=== PATIENT | female | born 1975 | race Caucasian/White ===

== ENCOUNTER 2017-01-26 17:24 | Emergency (ER) | payer MEDICAID ==
[2017-01-26 18:24] LABS: BASOPHILS 0.1 % (0.0-2.0); EOSINOPHILS 0 % (0-7); HEMATOCRIT 39.8 % (36.0-48.0); HEMOGLOBIN 13.6 g/dL (12-16); IMMATURE GRANULOCYTES 0.2 % (0-5); LYMPHOCYTES 16.8 % (15-50); MCH 33.4 pg (26.0-34.0); MCHC 34.2 g/dL (31.0-37.0); MCV 97.8 fL (80.0-100.0); MEAN PLATELET VOLUME 9.7 fL (7.4-10.4); MONOCYTES 3.9 % (2-11); PLATELET COUNT 253 10x3/uL (130-400); RBC 4.07 10x6/uL (4.00-5.40); RDW 12.2 % (11.5-14.5); WBC 8.2 10x3/uL (4.8-10.8)
[2017-01-26 18:42] LABS: ALBUMIN 4.6 g/dL (3.4-5.0); ALKALINE PHOSPHATASE 64 U/L (46-116); ALT (SGPT) 30 U/L (10-68); CALC OSMOLALITY 284 mosm/kg (275-300); CALCIUM 9.8 mg/dL (8.5-10.1); CARBON DIOXIDE 21.8 mmol/L (21.0-32.0); CHLORIDE - SERUM 102 mmol/L (98-107); CREATININE - SERUM 0.8 mg/dL (0.6-1.3); GLUCOSE 146 mg/dL (74-106); POTASSIUM - SERUM 3.8 mmol/L (3.5-5.1); PROTEIN - SERUM 7.7 g/dL (6.4-8.2); SODIUM 141 mmol/L (136-145); UREA NITROGEN 16 mg/dL (7-18); eGFR NON AFRICAN AMERICAN 85 mL/min (90-120)
== END 2017-01-26 20:25 | disposition home or self-care (01) ==
LOC: D.ER 17:24
PROVIDERS: Emergency Medicine
DX: B34.9 Viral infection, unspecified (principal); R00.1 Bradycardia, unspecified

== ENCOUNTER 2019-04-14 17:09 | Emergency (ER) | payer MEDICAID ==
[~2019-04-14] VITALS: Ht 154.9 cm; Wt 52.3 kg
[2019-04-14 17:15] VITALS: Ht 154.9 cm; Wt 52.3 kg
[2019-04-14] MEDS ORDERED: CELEXA40 MG PO (17:17)
[2019-04-14] MEDS ORDERED: MAG-OXIDE400 MG PO (17:18)
[2019-04-14] MEDS ORDERED: CLEOCIN HCL300 MG PO (18:45)
[2019-04-14 18:59] VITALS: BP 148/101
== END 2019-04-14 19:00 | disposition home or self-care (01) ==
LOC: D.ER 17:09
DX: S71.122A Laceration with foreign body, left thigh, initial encounter (principal); Y93.H2 Activity, gardening and landscaping; Y92.017 Garden or yard in single-family (private) house as the place of occurrence of the external cause

== ENCOUNTER 2020-07-13 17:00 | Emergency (ER) | payer MEDICAID ==
[~2020-07-13] VITALS: Ht 154.9 cm; Wt 50.0 kg
[~2020-07-13 17:00] MED LIST: CELEXA40 MG PO; CLEOCIN HCL300 MG PO; MAG-OXIDE400 MG PO
[2020-07-13 17:14] VITALS: Ht 154.9 cm; Wt 50.0 kg
[2020-07-13 17:43] LABS: BASOPHILS 0.2 % (0-2); EOSINOPHILS 0.1 % (0-7); HEMOGLOBIN 14.1 g/dL (12-16); IMMATURE GRANULOCYTES 0.1 % (0-5); MCH 34.1 pg (26.0-34.0); MCHC 34.4 g/dL (31.0-37.0); MEAN PLATELET VOLUME 9.5 fL (7.4-10.4); MONOCYTES 5.8 % (2-11); NEUTROPHILS 87.8 % (40-80); RBC 4.14 10x6/uL (4.00-5.40); RDW 12.1 % (11.5-14.5); WBC 11.4 10x3/uL (4.8-10.8)
[2020-07-13 17:44] LABS: PLATELET COUNT 311 10x3/uL (130-400)
[2020-07-13 17:50] LABS: ANION GAP 18.7 mmol/L (8-16); CALCIUM 10.3 mg/dL (8.5-10.1); CARBON DIOXIDE 22.2 mmol/L (21.0-32.0); CREATININE - SERUM 1.1 mg/dL (0.6-1.3); POTASSIUM - SERUM 3.9 mmol/L (3.5-5.1)
[2020-07-13 17:57] LABS: ALBUMIN 4.6 g/dL (3.4-5.0); BILIRUBIN - TOTAL 0.46 mg/dL (0.2-1.3); PROTEIN - SERUM 8.3 g/dL (6.4-8.2)
[2020-07-13] MEDS ORDERED: ZANAFLEX4 MG PO (19:54)
[2020-07-13] MEDS ORDERED: PRINIVIL20 MG PO (19:55)
[2020-07-13] MEDS ORDERED: TERBINAFINE HC250 MG PO (19:55)
[2020-07-13] MEDS ORDERED: TYLENOL W/CODEI1 TAB PO (19:55)
[2020-07-13 20:07] LABS: BILIRUBIN NEGATIVE (NEGATIVE); GLUCOSE NEGATIVE (NEGATIVE); KETONE MODERATE mg/dL (NEGATIVE); NITRITE NEGATIVE (NEGATIVE); UROBILINOGEN NORMAL (NORMAL)
[2020-07-13] MEDS ORDERED: PHENERGAN25 M1 PO (22:38)
[2020-07-13 22:50] VITALS: BP 106/57
== END 2020-07-13 22:50 | disposition home or self-care (01) ==
LOC: D.ER 17:00
PROVIDERS: Family Medicine
DX: A08.4 Viral intestinal infection, unspecified (principal); R11.10 Vomiting, unspecified